=== PATIENT | male | born 1960 | race Caucasian/White ===

== ENCOUNTER → 2017-11-28 | Outpatient (CLI) | payer BC | LOC: LAB EV 10:34 | DX: J02.9 Acute pharyngitis, unspecified (principal) | CPT/HCPCS: 87070 ==

== ENCOUNTER 2023-06-22 14:13 | Emergency (ER) | payer BC ==
[~2023-06-22] VITALS: Ht 180.3 cm; Wt 81.7 kg
[~2023-06-22 14:13] MED LIST: Flomax0.4 MG PO; OXYC5 PO
[2023-06-22 14:24] VITALS: BP 174/98
[2023-06-22 14:38] LABS: Source, Urine Voided
[2023-06-22 14:41] LABS: Appearance, Urine Clear (Clear); Bilirubin, Urine Neg (Neg); Blood, Urine Neg (Neg); Color, Urine Yellow (P-Yellow); Glucose Qualitative, Urine Neg (Neg); Ketones, Urine Neg (Neg); Leukocyte Esterase, Urine Neg (Neg); Nitrite, Urine Neg (Neg); Protein, Urine Neg (Neg); Specific Gravity, Urine 1.025 (1.003-1.022); Urobilinogen, Urine 1+ (Normal)
[2023-06-22] MEDS ORDERED: TAMS.4ER PO (19:30)
[2023-06-22] MEDS ORDERED: Pyridium100 MG PO (19:30)
== END 2023-06-22 19:34 | disposition home or self-care (01) ==
LOC: ER 14:13
PROVIDERS: Emergency Medicine
DX: N20.0 Calculus of kidney (principal)
CPT/HCPCS: 74176; 81003; 99284-25; A9270